=== PATIENT | female | born 1975 | race Caucasian/White ===

== ENCOUNTER 2023-04-12 13:40 | Emergency (ER) | payer MEDICAID ==
[~2023-04-12] VITALS: Ht 160 cm; Wt 84.0 kg
[2023-04-12 13:46] VITALS: O2SAT 100
[2023-04-12 16:46] LABS: CLARITY URINE TURBID (CLEAR); COLOR URINE YELLOW (YELLOW); GLUCOSE URINE NEGATIVE (NEGATIVE); KETONES URINE NEGATIVE (NEGATIVE); LEUKOCYTE ESTERASE URINE 3+ (NEGATIVE); NITRITE URINE POSITIVE (NEGATIVE); OCCULT BLOOD URINE 2+ (NEGATIVE); PROTEIN URINE 2+ (NEGATIVE); SPECIFIC GRAVITY URINE 1.014 (1.005-1.030); UROBILINOGEN URINE 0.2 E.U./dL (0.2-1.0)
[2023-04-12 17:18] LABS: BACTERIA URINE 2+; SQUAMOUS EPITHELIAL CELL URINE 1+ /lpf (RARE/1+); WBC URINE TNTC /hpf (0-2)
[2023-04-12] MEDS ORDERED: CEFTRIAXONE SODIUM 500 MG/VIAL IM ONE (18:45)
[2023-04-12] MEDS ORDERED: DOXYCYCLINE HYCLATE 100MG CAPSULE PO ONE (18:45)
[2023-04-12] MEDS ORDERED: LIDOCAINE HCL 1% 20ML VIAL (Pyxis) INJ INFIL ONE (18:45)
[2023-04-12] MEDS ORDERED: CIPR-263 MT ×3 (18:48→18:50)
[2023-04-12] MEDS ORDERED: DOXY100C5 MT ×3 (18:48→18:50)
[2023-04-12 19:19] VITALS: BP 125/78; PULSE 76; RESP 19; TEMP 98.3
== END 2023-04-12 19:24 | disposition home or self-care (01) ==
LOC: ER 13:40
DX: N12 Tubulo-interstitial nephritis, not specified as acute or chronic (principal); Z90.49 Acquired absence of other specified parts of digestive tract; Z98.890 Other specified postprocedural states
CPT/HCPCS: 81003; 81025; 87086; 87186; 87077; 96372; 99283; J0696; J3490; Z7610 ×2